=== PATIENT | male | born 1990 | race Caucasian/White ===

== ENCOUNTER 2018-05-07 05:15 | Day surgery (SDC) | payer OTHER ==
[2018-05-05 13:53] VITALS: BMI 27.1
[2018-05-07] MEDS ORDERED: ROPIVACAINE HCL 0.5% 30ML VIAL ONE (09:06)
[2018-05-07] MEDS ORDERED: DEXAMETHASONE SOD PHOSPHATE 4 MG/1 ML VIAL ONE ×2 (09:30→09:32)
[2018-05-07] MEDS ORDERED: MIDAZOLAM HCL 2 MG/2 ML SINGLE DOSE VIAL ONE ×2 (09:30)
--- NOTE | 2018-05-07 09:45 | HP ---
[facility] - Chief Complaint Chief Complaint: left knee pain - Past Medical History Allergies/Adverse Reactions: Allergies Allergy/AdvReac Type Severity Reaction Status Date / Time No Known Allergies Allergy Verified 05/05/18 13:47 - Current Medications Current Medications: Home Medications Medication Instructions Recorded Oxycodone HCl/Acetaminophen 1 - 2 tab PO Q6H #30 tab MDD 6 05/07/18 [Percocet 5-325 mg Tablet] [facility] Physical Exam - Physical Examination Vital Signs: Vital Signs Period Temp Pulse Resp BP Sys/Funes Pulse Ox Last 24 Hr 98.2 F-98.2 F 77-77 18-18 114-114/71-71 100 General Appearance: Well Nourished, Well Developed, Alert & Oriented x3 ENT: Clear Lung: Normal air movement Heart: Regular rate & rhythm Extremities: Other (left knee- + swelling, + ttp, decr rom, + haylee, + ant draw, nvi MRI + acl avulsuion from tibial spine) Neurological: Intact, Alert, Oriented Satellite Impression/Plan - Impression/Plan Impression: left knee tibial spine avulsion fx Operative Procedure: left knee arthroscopy with ACL/tibial spine repair, possible reconstruction Date to be Performed: 05/07/18
[2018-05-07] MEDS ORDERED: ceFAZolin SODIUM 1 GM VIAL IVPB ONE (10:23)
--- NOTE | 2018-05-07 11:25 | OP ---
Operative Note - Note: Operative Date: 05/07/18 ([facility]) Pre-Operative Diagnosis: left knee ACL/tibial spine avulsion Operation: left knee arthroscopy with ACL/tibial spine repair Post-Operative Diagnosis: Same as Pre-op Surgeon: Anish Robles Engraver Machine: Clint Anna Anesthesiologist/LAWNMOWER REPAIR MECHANIC: Mihai Alarcon Anesthesia: General, Local Estimated Blood Loss (mls): 10 Operative Report Dictated: Yes
[2018-05-07] MEDS ORDERED: ONDANSETRON 4 MG/2 ML VIAL ONE (11:55)
[2018-05-07] MEDS ORDERED: CEFAZOLIN 1 GM in DEXTROSE 5%-WATER - 50 ML IVPB ONE (12:00)
[2018-05-07] MEDS ORDERED: oxyCODONE HCL 5 MG TABLET PO PRN ×2 (12:01)
[2018-05-07] MEDS ORDERED: ONDANSETRON 4 MG/2 ML VIAL IVPUSH PRN (12:01)
--- NOTE | 2018-05-07 12:04 | OP ---
DATE OF OPERATION: 05/07/2018 PREOPERATIVE DIAGNOSIS: Avulsion of the left anterior cruciate ligament. POSTOPERATIVE DIAGNOSIS: Avulsion of the left anterior cruciate ligament. PROCEDURE: Arthroscopic repair of the left anterior cruciate ligament. SURGICAL ATTENDING: Anish Robles MD HEALTH THERAPIST: ARACELIS Ellison ANESTHESIA: Regional and general. CLOSURE: SutureTape and SwiveLock and a button for repair, 3-0 nylon for skin. ESTIMATED BLOOD LOSS: Negligible. COMPLICATIONS: None. CONDITION: To recovery in stable condition. DESCRIPTION OF OPERATIVE PROCEDURE: Patient taken to the operating room on May 07, 2018. Regional and general anesthesia were administered by the anesthesiologist. IV Kefzol was administered prophylactically prior to the case. Right lower extremity was prepped and draped in the usual sterile fashion and the superolateral and medial and lateral infrapatellar portal sites were made with a 15 blade followed by a blunt trocar. Superolateral was the outflow portal. The inferolateral portal was the scope portal and the inferomedial was the working portal. The scope was placed in the lateral infrapatellar portal and up to the suprapatellar pouch. The pouch was visualized to be clean. The medial and lateral gutters were visualized to be clean. The undersurface of the patella and trochlea was visualized to be intact. With valgus stress on the knee the medial compartment was entered. Medial meniscus was visualized, probed, found to be intact. The medial femoral condyle was run and found to be intact as was the medial tibial plateau. In a figure-4 position the lateral compartment was entered. Lateral meniscus was visualized, probed, found to be intact. The lateral femoral condyle was run and found to be intact as was the lateral tibial plateau. At 90 degrees the ACL was probed and it was found to have an avulsion of the ACL. It was intact to its femoral origin but on the tibial side was avulsed with fragments of bone. A [employer] suture punch was used to place 1 anterior, 1 posterior SutureTape through the ACL. These were docked in the inferomedial portal. Using the ACL guide a flip cutter was used to drill a tunnel just anterior to the footprints of the ACL. It was removed. Then a FiberStick suture was placed up that tunnel, creating a 3.4-mm tunnel with a shuttle stitch. The shuttle stitch was used to pull the SutureTape sutures down through the tunnel to the anteromedial proximal tibia. With 20 degrees of flexion and a posterior drawer being applied the sutures were sutured snugly down on to a button on the anteromedial proximal tibia. fixation they were docked into a SwiveLock an inch more distal to the button. The knee was taken through a range of motion, found to have full extension, full flexion with a negative anterior-posterior drawer and negative Joanna. Direct visualization and probing revealed excellent tension in the ACL and excellent repair of the avulsion. The sutures were cut snug. All the portals were closed with 3-0 nylon. A sterile pressure dressing followed by a knee immobilizer was applied. Patient awakened from anesthesia and transferred to recovery in stable condition. No complication. Estimated blood loss negligible. Arlette [id number]
[2018-05-07] MEDS ORDERED: LACTATED RINGERS SOLUTION 1,000 ML IV SCH (12:15)
[2018-05-07] MEDS ORDERED: ceFAZolin SODIUM 1 GM VIAL ONE (14:04)
[2018-05-07 17:48] VITALS: BP 119/62; PULSE 83; TEMP 98.1
--- NOTE | 2018-05-08 18:10 | PATH ---
Surgical Pathology Report Patient Name: JOSH HAGER Med. Rec. #: [id number] /Age/Gender: 1990 (Age: 27) / M Account: [id number] Location: [facility] Taken: 05/07/2018 Received: 05/07/2018 Reported: 05/08/2018 Physicians: Anish Robles M.D. Specimen(s) Received LEFT KNEE SHAVINGS Clinical History Tear left ACL Final Diagnosis KNEE SHAVINGS, LEFT, ACL REPAIR: FRAGMENTS OF DENSE FIBROCONNECTIVE TISSUE, ADIPOSE TISSUE, AND SYNOVIUM. Electronically Signed Patrizia Boo M.D. Gross Description Received in formalin, labeled "left knee shavings," is a 5.5 x 4.0 x 0.5 cm. aggregate of jorge-yellow soft tissue fragments. A claims customer service representative portion is submitted in one cassette. /05/07/201805/07/2018
== END 2018-05-07 16:00 | disposition home or self-care (01) ==
LOC: JASU-SURG 05:15
PROVIDERS: ATTEND Orthopaedic Surgery
PROC: 0MQP4ZZ Repair Left Knee Bursa and Ligament, Percutaneous Endoscopic Approach (ICD-10-PCS; principal; 2018-05-07 09:30)
DX: S83.512A Sprain of anterior cruciate ligament of left knee, initial encounter (principal); X58.XXXA Exposure to other specified factors, initial encounter; Y93.9 Activity, unspecified; Y92.9 Unspecified place or not applicable; Y99.9 Unspecified external cause status
CPT/HCPCS: 88304-TC; 94760; 97116-GP